=== PATIENT | female | born 1980 | race Native Hawaiian/Other Pacific Islander ===

== ENCOUNTER 2016-03-20 14:22 | Emergency (ER) | payer OTHER ==
[~2016-03-20] VITALS: Ht 154.9 cm; Wt 53.5 kg
[2016-03-20 15:59] LABS: PLATELET COUNT 280 K/uL (152-353)
[2016-03-20 16:14] LABS: POTASSIUM 3.8 mmol/L (3.6-5.2); SODIUM 135 mmol/L (136-145)
== END 2016-03-20 19:31 | disposition home or self-care (01) ==
LOC: ED 14:22
PROVIDERS: Emergency Medicine
DX: R10.84 Generalized abdominal pain (principal)
CPT/HCPCS: 36415; 80053; 80307; 81000; 83690; 85027; 96365; 96374; 99284; G0479; J2405; Q9963